=== PATIENT | male | born 1975 | race Caucasian/White ===

== ENCOUNTER → 2017-02-06 | Outpatient (CLI) | payer OTHER ==
[~2017-02-06] MED LIST: B12-1CHW CHEW; BUPR100CR PO; CLAR10CA3 PO; OMEP20TA PO; OXCA600T PO; TAMS5CAP PO; TRAZ100T4 PO
--- NOTE | 2017-02-06 11:38 | RADRPT ---
EXAM DATE/TIME: 02/06/2017 10:38 [place] COMPARISON: No previous studies available for comparison. INDICATIONS : Abnormal lab values. MEDICAL HISTORY : Hypertension. Gastroesophageal reflux disease. Cerebral palsy. Neurogenic bladder. SURGICAL HISTORY : Tendon lengthening. ENCOUNTER: Initial ACUITY: 1 day PAIN SCORE: 0/10 LOCATION: Bilateral flank MEASUREMENTS: RIGHT KIDNEY: 10.1 x 4.8 x 6.0 cm LEFT KIDNEY: 11.2 x 6.1 x 6.8 cm FINDINGS: There is no hydronephrosis. No definite solid mass is identified. No definite stone is identified f or technique. The bladder is grossly intact for technique and not being completely distended during t he exam. That there are 2 simple cysts in the right kidney measuring 2.8 and 2.2 cm in size. CONCLUSION: Unremarkable renal ultrasound except for right renal cysts. Pieter Tracy MD on February 06, 2017 at 11:35 Board Certified Radiologist. This report was verified electronically.
== END ==
LOC: HRAD 10:04
PROVIDERS: ATTEND Urology
DX: N31.9 Neuromuscular dysfunction of bladder, unspecified (principal)
CPT/HCPCS: 76775